=== PATIENT | male | born 1965 | race Caucasian/White ===

== ENCOUNTER 2022-12-20 11:55 | Outpatient (CLI) | payer BC, SELFPAY ==
[2022-12-20 18:24] LABS: Chloride* 106 mmol/L (96-114); Sodium* 139 mmol/L (135-149)
[2022-12-20 18:25] LABS: Potassium* 4.8 mmol/L (3.6-5.1)
[2022-12-20 18:27] LABS: Estimated Glomerular Filt Rate 89 ml/min
[2022-12-20 18:28] LABS: Blood Urea Nitrogen* 23 mg/dL (7-30); Calcium* 8.8 mg/dL (8.4-10.6); Carbon Dioxide* 28 mmol/L (20-32); Glucose* 79 mg/dL (60-115)
[2022-12-20 18:50] LABS: PSA Screen* 0.64 ng/mL (0.10-4.00)
== END 2022-12-20 11:56 | disposition home or self-care (01) ==
PROVIDERS: PCP Family Medicine; Visit Provider Family Medicine
DX: I10 Essential (primary) hypertension (principal); Z12.5 Encounter for screening for malignant neoplasm of prostate
CPT/HCPCS: 80048; 84153

== ENCOUNTER 2023-02-28 09:08 | Outpatient (CLI) | payer BC, SELFPAY | END 2023-02-28 09:09 | disposition home or self-care (01) | PROVIDERS: PCP Family Medicine; Visit Provider Internal Medicine | DX: Z12.11 Encounter for screening for malignant neoplasm of colon (principal); K63.5 Polyp of colon | CPT/HCPCS: 45380; 88305; J2250; J3010 ==

== ENCOUNTER 2023-05-23 13:38 | Outpatient (CLI) | payer BC, SELFPAY | END 2023-05-23 13:39 | disposition home or self-care (01) | LOC: LONREF 13:40 | PROVIDERS: PCP Family Medicine; Visit Provider Family Medicine | DX: Z01.818 Encounter for other preprocedural examination (principal) | CPT/HCPCS: 80048 ==

== ENCOUNTER 2024-05-04 10:47 | Outpatient (CLI) | payer BC, SELFPAY | END 2024-05-04 10:48 | disposition home or self-care (01) | PROVIDERS: PCP Family Medicine; Visit Provider Family Medicine | DX: I10 Essential (primary) hypertension (principal); Z13.6 Encounter for screening for cardiovascular disorders | CPT/HCPCS: 80048; 80061 ==

== ENCOUNTER 2025-08-24 14:53 | Outpatient (CLI) | payer BC, SELFPAY | END 2025-08-24 14:54 | disposition home or self-care (01) | PROVIDERS: PCP Family Medicine; Visit Provider Family Medicine | DX: Z12.5 Encounter for screening for malignant neoplasm of prostate (principal); Z13.6 Encounter for screening for cardiovascular disorders; E66.9 Obesity, unspecified; Z68.29 Body mass index [BMI] 29.0-29.9, adult | CPT/HCPCS: 80061; 80076; G0103 ==